=== PATIENT | male | born 1945 | race Caucasian/White ===

== ENCOUNTER → 2016-09-10 | Outpatient (CLI) | payer MEDICARE, OTHER ==
--- NOTE | 2016-09-11 08:54 | US ---
EXAM DESCRIPTION: Soft Tissue,Extremity CLINICAL HISTORY: 71 years Male, SQ MASS TECHNIQUE: Limited soft tissue ultrasound of the right posterior aspect of the shoulder, subjacent to the palpable abnormality. Grayscale and color Doppler images were saved to the patient's medical record. FINDINGS: There is an encapsulated isoechoic 1.5 x 2.1 x 0.5 cm probable lipoma noted within the area of concern of the posterior right shoulder. IMPRESSION: Probable lipoma noted within the area of concern along the posterior margin of the right shoulder. Electronically signed by: Murtaza Iqbal MD 09/11/2016 8:53 AM CDT
== END | disposition home or self-care (01) ==
LOC: US 15:24
PROVIDERS: ATTEND Surgery
DX: M25.511 Pain in right shoulder (principal); R22.2 Localized swelling, mass and lump, trunk

== ENCOUNTER → 2016-10-29 | Outpatient (CLI) | payer MEDICARE, OTHER | END | disposition home or self-care (01) | LOC: LAB.O 16:13 | PROVIDERS: ATTEND Surgery | DX: R10.814 Left lower quadrant abdominal tenderness (principal) ==

== ENCOUNTER → 2016-10-30 | Outpatient (CLI) | payer MEDICARE, OTHER ==
--- NOTE | 2016-10-31 07:47 | CT ---
EXAM DESCRIPTION: Abdomen/Pelvis w/wo Contrast CLINICAL HISTORY: LLQ PAIN COMPARISON: October 05, 2015 October 26, 2015 TECHNIQUE: Pre and postcontrast CT images of the abdomen and pelvis are obtained. This exam was performed according to our departmental dose-optimization program, which includes automated exposure control, adjustment of the mA and/or kV according to patient size and/or use of iterative reconstruction technique . FINDINGS: Visualized lung bases show no acute findings. Less than 1 cm probable cyst in the mid right lobe liver is stable. Spleen, pancreas, adrenal glands, and gallbladder are unremarkable. Mild to moderate atherosclerotic disease is seen. Tiny 2 mm punctate nonobstructing calcification in an upper pole calyx of the right kidney is seen. No ureteral calcification or obstruction. Urinary bladder is contracted. Moderate diffuse circumferential bladder wall thickening is seen. Prostate is unremarkable. there has been interval mostly resolution of the area inflammation in the right central abdomen seen on previous examination. There is bowel wall thickening involving the terminal ileum without surrounding fat stranding. Diffuse bowel wall thickening is seen throughout the entire colon with mucosal enhancement. No surrounding fat stranding is seen. No drainable fluid collection is identified. There are enlarged mesenteric lymph nodes again identified measuring up to 2 cm diameter central abdomen similar to previous exam. Mild retroperitoneal lymphadenopathy is seen. No free intraperitoneal air is seen. Mildly enlarged enhancing lymph nodes in the inguinal region are seen. External iliac chain lymph nodes are again identified measuring up to 1.7 cm short axis on the left. Occasional diverticuli of the colon are seen. IMPRESSION: Bowel wall edema and mucosal enhancement throughout the colon and involving parts of the distal or terminal ileum consistent with colitis/enteritis. Question history of inflammatory bowel disease such as Crohn's disease. There is been interval resolution of area of inflammation or abscess in the right central abdomen seen on previous exam. No drainable fluid collection or free intraperitoneal air is seen on today's exam. Enlarged abdominal or retroperitoneal lymphadenopathy is likely reactive in similar in appearance to previous exam. Other findings as described in body of report. Electronically signed by: Star Reed MD 10/31/2016 7:47 AM CDT
== END ==
LOC: CT 08:29
PROVIDERS: ATTEND Surgery
DX: R10.814 Left lower quadrant abdominal tenderness (principal)

== ENCOUNTER 2016-11-08 05:54 | Day surgery (SDC) | payer MEDICARE, OTHER ==
[2016-11-08] MEDS ORDERED: SODIUM BICARBONATE VIAL 50 MEQ/50 ML VIAL ONE (07:13)
[2016-11-08] MEDS ORDERED: LIDOCAINE 1% 50 ML VIAL INJ ONE (07:13)
[2016-11-08 09:34] VITALS: BP 172/89; TEMP 98.5; O2SAT 97
--- NOTE | 2016-11-08 10:18 | OP ---
DATE OF PROCEDURE: 11/08/16 PREOPERATIVE DIAGNOSIS: 1. Tender subcutaneous mass, right posterior neck/shoulder. POSTOPERATIVE DIAGNOSIS: 1. Tender subcutaneous mass, right posterior neck/shoulder. PROCEDURE: 1. Excision of subcutaneous mass, right neck/shoulder. SURGEON: Nilay Riley MD. JACK SETTER: None. ANESTHESIA: Local infiltration of 1% lidocaine with bicarb. INDICATION: The patient is a 71-year-old male who has had pain in his right shoulder which extends from his neck. There is a mass that is tender which causes discomfort to palpation. Workup revealed it to be consistent with a lipoma in the subcutaneous area. He was brought to the Surgical Suite today for excision of same. FINDINGS: The mass was excised in toto and measured approximately 2 cm in greatest diameter. PROCEDURE: The patient was placed in the prone position. The right posterior neck and shoulder were prepped with chlorhexidine and draped. Surgical time- out was taken and then an incision was marked over the mass, first with a marking pen and then with infiltration of anesthesia. The skin was incised with a knife and dissection was carried down through the skin and subcutaneous tissue using electrocautery. The mass was identified and it was then dissected free bluntly and with electrocautery. It was removed and sent in toto for pathologic evaluation. The wound was irrigated with lidocaine. Hemostasis was noted to be adequate. The wound was then closed. The subcutaneous tissues were approximated with interrupted 3-0 Vicryl suture. The skin edges were approximated with 3-0 Nylon vertical mattress sutures. Sterile pressure dressing was applied. The patient was then taken to the Ambulatory Unit in stable condition. Estimated blood loss was less than 10 mL. All sponge, needle and instrument counts were correct. #[id number] [facility]
== END 2016-11-08 09:30 | disposition home or self-care (01) ==
LOC: AMB 05:54
PROVIDERS: ATTEND Surgery
DX: D17.0 Benign lipomatous neoplasm of skin and subcutaneous tissue of head, face and neck (principal); J44.9 Chronic obstructive pulmonary disease, unspecified; K21.9 Gastro-esophageal reflux disease without esophagitis; I10 Essential (primary) hypertension; I73.9 Peripheral vascular disease, unspecified; F17.210 Nicotine dependence, cigarettes, uncomplicated; Z96.652 Presence of left artificial knee joint; Z88.0 Allergy status to penicillin; Z79.899 Other long term (current) drug therapy

== ENCOUNTER → 2017-10-29 | Outpatient (CLI) | payer MEDICARE, OTHER | LOC: GMAJ 11:37 | PROVIDERS: ATTEND Family Medicine | DX: Z12.5 Encounter for screening for malignant neoplasm of prostate (principal) ==

== ENCOUNTER → 2018-08-05 | Outpatient (CLI) | payer MEDICARE, OTHER ==
--- NOTE | 2018-08-06 08:46 | MRI ---
EXAM DESCRIPTION: Lumbar Spine w/o Contrast : Magnetic Resonance Imaging. CLINICAL HISTORY: Screening. Low-back pain. COMPARISON: MRI scan lumbar spine 09/15/2009. TECHNIQUE: Multiplanar, multiple standard sequences, non contrast MRI, lumbar spine. FINDINGS: L5-S1: Disc desiccation with disc space maintained. Hyperintense T2 weighted annular fissure posterior disc margin. 3 mm broad-based bulge. AP canal diameter 11 mm. Minimal bilateral facet arthrosis and hypertrophy. Moderate bilateral foraminal narrowing more on the right. L4-L5: Disc desiccation and minimal disc space loss. 2 mm grade 1 retrolisthesis. Posterior broad-based bulge with midline 5.5 mm protrusion impressing on the thecal sac. Bilateral narrowing of the subarticular recesses abutting the bilateral descending L5 nerves. AP canal diameter 6 mm. Bilateral early facet arthrosis and hypertrophy with flavum ligaments. Moderate right foraminal narrowing and moderate to severe left foraminal narrowing. L3-L4: Disc desiccation. Disc space maintained. Posterior broad-based 4 mm bulge 5 mm to the left of midline, accompanied by small endplate spurs. Bilateral disc bulge encroaching on the foramina, abutting the exiting bilateral L3 nerves with moderate foraminal narrowing. Hyperintense T2 weighted annular fissure in the segment bulging into the right foramen. Minimal anterior bulge with endplate ridging. Bilateral flavum ligament hypertrophy with AP canal diameter 12 mm. L2-L3: Minimal disc desiccation with disc space preserved. No posterior bulging. Flavum ligament hypertrophy. Minimal hypertrophy of the flavum ligaments posteriorly, but canal and bilateral foramina are patent. Circumscribed hyperintense T1 and T2 signal lesion in the inferior mid vertebral body consistent with a hemangioma and stable since the prior study. L1-L2: Normal signal in the disc with disc space preserved. Posterior elements unremarkable. Canal and foramina are patent. T12-L1: Disc desiccation with disc space maintained. Anterior bulging and small endplate spurs. No posterior bulge. Posterior elements unremarkable. Canal and foramina are patent. Conus terminates at L1. No significant scoliosis. Paravertebral soft tissues unremarkable. Focal abdominal aorta enlargement infrarenal segment, 2.4 x 2.3 cm at the level of L4.. Normal marrow signal in the remaining vertebral bodies and the posterior elements. Vertebral bodies are not compressed at any level. IMPRESSION: 1. Broad-based bulge of the desiccated L5-S1 disc with annular fissure in the bulging segment. Moderate bilateral foraminal narrowing more on the right. Moderate canal narrowing. This has progressed since the prior study 2. L4-L5 disc protrusion in the midline impressing on the thecal sac with bilateral facet arthrosis and hypertrophy resulting in multifactorial severe canal stenosis. Also narrowing of the bilateral subarticular recesses. Severe left foraminal narrowing with abutment of the exiting left L4 nerve. This has progressed since the prior study. 3. Posterior broad-based bulge of the desiccated L3-L4 disc. Protrusion to the left of midline, abutting the left L4 nerve. Bilateral spur disc encroachment on the foramina abutting the L3 nerves in the foramina, with annular fissure in the right intraforaminal disc. Moderate canal narrowing. This has progressed since the prior study. Electronically signed by: Leonard Spence MD 08/06/2018 8:42 AM CDT
== END ==
LOC: MRI 13:00
PROVIDERS: ATTEND Family Medicine
DX: M51.16 Intervertebral disc disorders with radiculopathy, lumbar region (principal)

== ENCOUNTER → 2018-12-02 | Outpatient (CLI) | payer MEDICARE, OTHER | LOC: RESP 10:43 | PROVIDERS: ATTEND Family Medicine | DX: R55 Syncope and collapse (principal) ==

== ENCOUNTER → 2018-12-05 | Outpatient (CLI) | payer MEDICARE, OTHER ==
--- NOTE | 2018-12-05 10:23 | MRI ---
EXAM DESCRIPTION: Brain w/o Contrast: MRI. CLINICAL HISTORY: Syncope COMPARISON: None. TECHNIQUE: Multiplanar, high-field MRI unit, multiple diffusion sequences, multiple conventional sequences without contrast. FINDINGS: Confluent FLAIR and T2-weighted signal in the bilateral periventricular white matter and espinoza radiata. Small focal lesions in the right frontal and left parietal subcortical white matter.. No hemorrhage, no cerebral edema, no mass-effect. Normal signal in the bilateral basal ganglia. No hemorrhage or diffusion restriction. Normal signal in the brainstem and left cerebellar hemisphere. No hemorrhage, no parenchymal edema, no mass-effect. Focal hyperintense T2, GRE, and diffusion SB0 signal without hemorrhage or diffusion restriction; most likely a cyst. Concordance of the diffusion and non-diffusion sequences with no diffusion restriction. Cortical sulci, ventricles, and other CSF spaces, and the subdural spaces are normally configured for patients age. No effacement or displacement. No midline shift. No extra-axial hemorrhage. Normal flow signal void in the major vessels of the [place], and the venous sinuses. IACs are symmetric bilaterally. Normal signal in the bilateral mastoid air cells. No mass effect in the bilateral cerebellopontine angles. Pituitary gland occupies all of the sella. Base of the cerebellar tonsils is above the foramen magnum. Normal signal in the paranasal sinuses. The bony calvarium is intact. IMPRESSION: 1. Confluent periventricular white matter lesions are bilaterally symmetric with scattered bilateral focal subcortical white matter lesions. Not associated with hemorrhage, mass effect, cerebral edema, or diffusion restriction. Most likely related to aging and/or cerebral microvascular disease. 2. Normal noncontrast MRI diffusion study with no evidence of acute or subacute, significant ischemic disease, or infarction. Electronically signed by: Leonard Spence MD 12/05/2018 10:21 AM CDT
== END ==
LOC: CT 08:30 → MRI 08:30
PROVIDERS: ATTEND Family Medicine
DX: R55 Syncope and collapse (principal); R07.82 Intercostal pain; F17.218 Nicotine dependence, cigarettes, with other nicotine-induced disorders

== ENCOUNTER → 2019-01-08 | Outpatient (CLI) | payer MEDICARE, OTHER ==
--- NOTE | 2019-01-08 11:27 | CT ---
Procedure: CT LUNG SCREENING Exam Date: 11/08/2018. Ordering Provider: Rocky Benito Clinical Indication: PERSONAL HISTORY OF TOBACCO USE. Current cigarette smoker. 57 pack years. This patient meets eligibility criteria for low-dose CT lung cancer screening. Comparison: Chest CT scan 09/20/2011. Technique: Using a multislice scanner, sequential helical axial imaging was obtained in the thorax, 2.5 mm thickness, 2.5 mm separation, from the level of the thoracic inlet through the lung bases without IV contrast. A low dose protocol was utilized for BMI less than 30: BMI: 22.5. CTDI: 1.76 mGy. 120. kVp. 45 mA. DLP: 66.43 mGy-centimeters. 2D sagittal and coronal reconstructed images, 6.0 mm thickness, were obtained. This exam was performed according to our departmental dose optimization program which includes use of automated exposure control, adjustment of the mA and/or kV according to patient size and/or use of iterative reconstruction technique. Nodule measurements under 10 mm are given as mean value of 3 axes diameters. FINDINGS: Lungs and large airways: Bilateral blebs mostly in a paraseptal distribution. Larger blebs and bulla abutting the fissures and pleura more medial than peripheral. Decreasing disease inferiorly. Bilateral mild perihilar peribronchial wall cuffing. Pleural parenchymal scarring in the every lobe more prominent in the bilateral lower lobes. No abnormal nodules or focal masses. No focal infiltrates. Pleura and space: Bilateral apical pleural thickening and subpleural bulla as described. No effusion or pneumothorax. Mediastinum and steve: evaluation limited by low dose technique and lack of IV contrast. Scattered lymph nodes in the upper and middle mediastinum. 12 x 14 mm lymph node in the azygos space. Other lymph nodes in the azygos space, AP window, middle mediastinum, subcarinal space, and superior mediastinum abutting the trachea. Heart and great vessels: Atherosclerotic calcifications in the brachiocephalic vessels and thoracic aorta. Also atherosclerotic calcifications in the coronary arteries. Chest wall, lower neck, axillae: Evaluation also limited by same factors as described above. Multiple lymph nodes bilateral axilla extending inferiorly along the chest wall. Largest lymph node in the right axilla is 1.5 x 1.2 cm. Long axis lymph node in the left axilla is 1.8 x 1.1 cm. Bilateral paratracheal and parathyroid nodes. Upper abdomen: Evaluation limited by low-dose technique. No free fluid or free air in the included peritoneal space. Gallbladder partially visualized. Atherosclerotic calcifications in the aorta. Osseous structures: Evaluation limited by low dose MIP technique. Multiple levels of spondylosis in the thoracic spine. Minimal arthrosis bilaterally sternoclavicular joints. No lytic or blastic lesions. IMPRESSION: 1. Emphysematous lung disease appears to be paraseptal type in more prevalent in the upper lung kaiser. Bilateral pleural-parenchymal scarring in every lobe. No abnormal nodule or mass. No focal infiltrate.. [facility] Best Practice recommendations: Please see below for Lung RADS category and FOLLOW-UP.* *Lung RADS category Category 1S - No nodule or definitely benign nodules (probability of malignancy less than 1%). Follow-up: Continue annual screening with Low Dose Chest CT in 12 months. 2. Lung RADS Modifier S - Clinically Significant or Potentially Clinically Significant Findings (non lung cancer). Adenopathy in the mediastinum and steve bilaterally and also in the bilateral axillary regions in the base of the neck. This can be associated with a systemic inflammatory process, focal infectious process, or a result of systemic disease such as lymphoma or leukemia. Correlate with clinical findings. Consider abdominal pelvic CT scan and soft tissue neck CT scan, both with IV contrast. Electronically signed by: Leonard Spence MD 01/08/2019 11:15 AM CDT
== END ==
LOC: CT 08:00
PROVIDERS: ATTEND Family Medicine
DX: Z87.891 Personal history of nicotine dependence (principal); J43.9 Emphysema, unspecified

== ENCOUNTER 2019-02-19 05:39 | Day surgery (SDC) | payer MEDICARE, OTHER ==
[2019-02-19] MEDS ORDERED: LIDOCAINE 1% 10 ML VIAL INJ ONE (07:00)
[2019-02-19] MEDS ORDERED: PROPOFOL 200 MG/20 ML VIAL IV ONE (07:00)
[2019-02-19] MEDS ORDERED: LACTATED RINGERS 0 ML ONE (07:17)
[2019-02-19] MEDS ORDERED: LACTATED RINGERS 1,000 ML ONE (07:27)
[2019-02-19] MEDS ORDERED: LACTATED RINGERS 1,000 ML IVS ONE (09:10)
[2019-02-19] MEDS ORDERED: MIDAZOLAM INJ 2 MG/2 ML VIAL ONE (09:44)
--- NOTE | 2019-02-19 11:26 | OP ---
DATE OF PROCEDURE: 02/19/19 REASON FOR PROCEDURE: 1. Cologuard positive. PROCEDURE: 1. Colonoscopy. SURGEON: Larry Pablo MD ANESTHESIA: General. PROCEDURE: In comfortable left lateral position, general anesthesia was induced. Digital rectal exam showed external hemorrhoidal tags throughout, but no masses, no evidence of fissure or fistula. The colonoscope was carefully introduced and passed. At approximately 15 cm, we noticed a 7 to 8 mm polyp on a stalk that was able to be removed with hot snare. We saw a couple of more polyps that we addressed on the way out. We advanced and ultimately reached the cecum. There was no evidence of cecal polyps. On withdrawal, at approximately 50 cm which appeared to be the proximal descending colon, there was another polyp about 7 mm. This was also removed with a hot snare. We got back into the 15 to 20 cm area in the rectosigmoid area and there were 3 more polyps, 2 were able to be removed with forceps and appeared hyperplastic. Another one that was small and adenomatous was removed also with a hot snare. In all, there were 4 polyps in the rectosigmoid proximally and the one at about 50 cm. There was no evidence of acute bleeding or chronic bleeding on these. So we will see him in followup in a week for pathology. He tolerated the procedure and was taken to Recovery to be discharged. #[id number] cc: MD LIANNA Almazan
[2019-02-19 13:04] VITALS: BP 128/68; TEMP 98; O2SAT 94
== END 2019-02-19 11:30 | disposition home or self-care (01) ==
LOC: AMB 05:39
PROVIDERS: ATTEND Surgery
DX: R19.5 Other fecal abnormalities (principal); K63.5 Polyp of colon; Z88.0 Allergy status to penicillin; Z96.60 Presence of unspecified orthopedic joint implant; Z95.5 Presence of coronary angioplasty implant and graft; Z79.82 Long term (current) use of aspirin; Z79.899 Other long term (current) drug therapy
CPT/HCPCS: 00811; 45380; 45385; 88305; J2250; J3490; J7120

== ENCOUNTER → 2019-10-26 | Outpatient (CLI) | payer MEDICARE, OTHER ==
--- NOTE | 2019-10-26 16:26 | MRI ---
EXAM DESCRIPTION: Cervical Spine: MRI. CLINICAL HISTORY: 74 years Male RADICULOPATHY COMPARISON: None. TECHNIQUE: Multiplanar, high-field MRI, multiple sequences, non-contrast Cervical spine. FINDINGS: C3-C4: Normal signal in the disc with no bulging. Small right uncinate spur. Degenerative hypertrophy of the right facet joint. Moderate to severe right neural foraminal narrowing. Canal and left neuroforamen patent. C4-C5: Disc desiccation and disc space loss. Moderate endplate reactive changes particularly posterior. Bilateral uncinate spurs. Anterior disc bulge and endplate ridging. Bilateral facet arthrosis greater on the right than left. Posterior disc osteophyte bulge abutting the cord. Posterior ligament hypertrophy. Borderline mild central canal stenosis and right neural foraminal stenosis. Moderate left neural foraminal narrowing. C5-C6: Disc desiccation and disc space loss is moderate with anterior endplate reactive changes disc bulge and endplate ridging. Posterior disc bulge with spurs abutting the cord. Posterior flavum ligament hypertrophy with moderate to severe canal narrowing. Left uncinate spur. Bilateral mild facet hypertrophy. Left neural foraminal stenosis. C6-C7: Disc desiccation and disc space loss. Anterior and posterior disc osteophyte bulge is. Mild endplate reactive changes posterior. Posterior flavum ligament thickening. Mild central canal stenosis. Bilateral hypertrophic facet arthrosis with bilateral neural foraminal stenosis greater on the right. C7-T1: Disc desiccation and minimal disc space loss. No disc bulging. Bilateral hypertrophic facet arthrosis greater on 8. Mild right neural foraminal narrowing. Canal is patent. Normal signal in the C2-3 disc and T1-2 disc with no bulging. Disc spaces preserved. Canal and neural foramina are patent. Facet joints unremarkable. Spinal alignment unremarkable.. No cord compression or cord edema. Atlantoaxial joint minimal hypertrophy. Base of the cerebellar tonsils is above the foramen magnum. Paravertebral soft tissues fluid signal superior to the left first rib.. Could also represent a lymph node. Most likely clinically insignificant. Vertebral bodies are not compressed at any level. Normal marrow signal in the remaining vertebral bodies and the posterior elements. IMPRESSION: 1. Disc desiccation and disc space loss and spondylosis at multiple levels, particularly C4-C5, C5-C6, C6-C7. Multifactorial bilateral neural foraminal stenosis at C6-C7. Correlate for bilateral C7 radiculopathy. Mild central canal stenosis. 2. Right neural foraminal stenosis at C4-C5 and left neural foraminal stenosis C5-C6. Please see above for details. Electronically signed by: Leonard Spence MD 10/26/2019 4:24 PM CDT
== END ==
LOC: MRI 08:00
PROVIDERS: ATTEND Family Medicine
DX: M47.22 Other spondylosis with radiculopathy, cervical region (principal); M50.321 Other cervical disc degeneration at C4-C5 level; M50.322 Other cervical disc degeneration at C5-C6 level; M50.323 Other cervical disc degeneration at C6-C7 level; M48.02 Spinal stenosis, cervical region